=== PATIENT | male | born 1975 | race American Indian/Alaskan Native ===

== ENCOUNTER 2019-08-25 19:13 | Emergency (ER) | payer SELFPAY ==
--- NOTE | 2019-08-25 22:49 | Event Note ---
ED Screening Note Date of service: 08/25/19 Time: 22:48 ED Screening Note: 43 y o m presnets wit abd/pelv pain This initial assessment/diagnostic orders/clinical plan/treatment(s) is/are subject to change based on patients health status, clinical progression and re- assessment by fellow clinical providers in the ED. Further treatment and workup at subsequent clinical providers discretion. Patient/guardian urged not to elope from the ED as their condition may be serious if not clinically assessed and managed. Initial orders include: labs,ua
[2019-08-25 22:51] LABS: Hematocrit 43.8 % (35.5-45.6); Hemoglobin 14.5 gm/dl (11.8-15.2); Lymphocytes % (Auto) 12.5 % (13.4-35.0); Mean Corpuscular HGB Conc 33 % (32-34); Mean Corpuscular Volume 89 fl (84-94); Monocytes % (Auto) 6.8 % (0.0-7.3); Platelet Count 568 K/mm3 (140-440); Red Blood Count 4.92 M/mm3 (3.65-5.03); Red Cell Distribution Width 14.3 % (13.2-15.2)
[2019-08-25 22:52] LABS: Basophils # (Auto) 0.2 K/mm3 (0.0-0.1); Basophils % (Auto) 0.8 % (0.0-1.8); Eosinophils # (Auto) 0.4 K/mm3 (0.0-0.4); Eosinophils % (Auto) 2.3 % (0.0-4.3); Lymphocytes # (Auto) 2.4 K/mm3 (1.2-5.4); Monocytes # (Auto) 1.3 K/mm3 (0.0-0.8)
[2019-08-25 23:56] LABS: Alanine Aminotransferase 49 units/L (7-56); Albumin 3.9 g/dL (3.9-5); BUN/Creatinine Ratio 10; Blood Urea Nitrogen 13 mg/dL (9-20); Calcium 9.2 mg/dL (8.4-10.2); Hemolysis Index 15
[2019-08-26] MEDS ORDERED: MORPHINE 4 MG/1 ML INJ IV ONE (02:10)
[2019-08-26] MEDS ORDERED: ONDANSETRON 4 MG/2 ML INJ IV ONE (02:10)
[2019-08-26] MEDS ORDERED: SODIUM CHLORIDE 0.9% 1000 ML 1,000 ML IV ONE (02:10)
[2019-08-26 02:55] LABS: Bilirubin,Urine Negative (Negative); Blood,Urine Small (Negative); Color,Urine Yellow (Yellow); Ictotest,Urine Negative (Negative); WBC,Urine > 182.0 /HPF (0.0-6.0)
[2019-08-26 02:56] LABS: Bacteria,Urine 1+ /HPF (Negative); Mucus,Urine 1+ /HPF
--- NOTE | 2019-08-26 03:33 | Cat Scan Report ---
CT ABDOMEN AND PELVIS WITH IV CONTRAST INDICATION: Generalized abdominal pain and constipation TECHNIQUE: Following the administration of intravenous contrast, multiple axial CT images of the abdo men and pelvis were acquired. Sagittal and coronal reformats were obtained. All CT performed at this facility utilize dose reduction techniques including automated exposure control, iterative reconstru ction and weight based dosing when appropriate to reduce patient radiation dose to as low as reasonab ly achievable. COMPARISON: None FINDINGS: Limited imaging of the bilateral lung bases demonstrates no acute abnormality. Abdomen: The liver, spleen, gallbladder, pancreas, bilateral adrenal glands and bilateral kidneys sirisha w no evidence of acute abnormality. There is no evidence of bowel obstruction or free fluid. There is a moderate amount of stool noted throughout the colon. The appendix is not definitely identified, bu t no right lower quadrant inflammatory changes are seen. Pelvis: No free fluid is seen within the pelvis. The prostate gland and urinary bladder appear grossl y normal. Bones and Soft Tissues: Evaluation of bony structures demonstrates no evidence of acute bony abnormal ity. Evaluation of soft tissue structures demonstrates no focal soft tissue abnormality. IMPRESSION: 1. No CT evidence of acute inflammatory or obstructive process within the abdomen or pelvis. Signer Name: Krupa Garza MD Signed: 08/26/2019 3:28 AM Workstation Name: [email or web address]
--- NOTE | 2019-08-26 03:36 | Ultrasound Report ---
EXAMINATION: Testicular/scrotal ultrasound, 08/26/2019 CLINICAL INFORMATION: Generalized testicular pain and swelling COMPARISON: No relevant prior studies are available for comparison FINDINGS: Both testicles appear normal in size and echotexture. There is increased vascular flow within the lef t testicle when compared to the right. There is a moderate size left-sided hydrocele. The left epididymis appears heterogeneous and demonstr ates increased vascularity when compared to the right epididymis. IMPRESSION: 1. Relatively increased vascular flow within the left testicle and left epididymis. This is nonspecif ic but could suggest an infectious or inflammatory process. 2. Moderate size left-sided hydrocele. Signer Name: Krupa Garza MD Signed: 08/26/2019 3:32 AM Workstation Name: [email or web address]
[2019-08-26] MEDS ORDERED: AZITHROMYCIN 250 MG TAB PO ONE (04:21)
[2019-08-26] MEDS ORDERED: cefTRIAXone/NS 1 GM/50 ML 1 GM/50 ML BAG IV ONE (04:21)
[2019-08-26] MEDS ORDERED: KETOROLAC 30 MG/1 ML INJ IV ONE (04:22)
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
[2019-08-26 06:34] VITALS: BP 104/69
== END 2019-08-26 06:25 | disposition home or self-care (01) ==
LOC: ED 19:13
DX: N39.0 Urinary tract infection, site not specified (principal); N45.1 Epididymitis; Z79.899 Other long term (current) drug therapy
CPT/HCPCS: 36415; 74177; 80053; 81001; 83690; 85025; 93975; 96361; 96365; 96375; 99284; J0696; J1885; J2270; J2405; J7030; Q9967

== ENCOUNTER 2019-10-02 20:29 | Emergency (ER) | payer SELFPAY ==
[2019-10-02] MEDS ORDERED: IBUPROFEN 600 MG TAB PO ONE (23:40)
[2019-10-03 01:53] VITALS: BP 134/88
== END 2019-10-03 05:15 | disposition left against medical advice (07) ==
LOC: ED 20:29
DX: M26.69 Other specified disorders of temporomandibular joint (principal); Z53.21 Procedure and treatment not carried out due to patient leaving prior to being seen by health care provider